=== PATIENT | male | born 1950 | race Caucasian/White ===

== ENCOUNTER 2024-04-26 09:45 | Emergency (ER) | payer OTHER, SELFPAY ==
[2024-04-26] VITALS (8 sets, daily range): BP systolic 103–138; BP diastolic 58–100; BMI 27.8
[2024-04-26 10:26] LABS: % Basophils 0.5 % (0-2); % Eosinophils 0.9 % (0-6); % Immature Granulocytes 0.4 % (0-0.5); % Lymphocytes 20.6 % (20.5-51.1); % Monocytes 8.6 % (1.7-9.3); Absolute Eosinophils 0.1 10^3/uL (0-0.7); Absolute Lymphocytes 1.2 10^3/uL (1.2-3.4); Absolute Monocytes 0.5 10^3/uL (0.1-0.6); Absolute Neutrophils 3.9 10^3/uL (1.4-6.5); Hematocrit 45.9 % (39.0-52.0); Hemoglobin 15.7 g/dL (13.0-18.0); Mean Corp Hgb Conc. 34.2 g/dL (33.0-37.0); Mean Corpuscular Hgb 30.9 pg (27.0-31.0); Mean Corpuscular Volume 90.4 fL (80.0-94.0); Mean Platelet Volume 10.3 fL (7.4-10.4); Nucleated Red Blood Cells % 0 % (-); Platelet Count 180 10^3/uL (130-400); Red Blood Cell Count 5.08 10^6/uL (4.70-6.10); Red Cell Dist. Width 12.6 % (11.5-14.5); White Blood Cell Count 5.6 10^3/uL (4.8-10.8)
[2024-04-26 10:37] LABS: APTT 25.6 Sec (23.4-35.0)
--- NOTE | 2024-04-26 10:37 | ED.GENMED ---
History of Present Illness
General
Chief Complaint: Heart Rate Problem
Source: patient
Exam Limitations: none
Time Seen by Provider: 04/26/24 10:03
Nursing documentation reviewed up to this point in time: agreed with
Travel History
Have you had any contact with someone who has COVID-19?: No
Do you have any symptoms of coronavirus? Fever > 100 degrees, chills, cough, shortness of breath, sore throat, loss of taste or smell, muscle aches, or headache?: No
History of Present Illness
History of Present Illness:
73-year-old male with a past medical history of hyperlipidemia, atrial fibrillation who presents to the emergency room for evaluation of palpitations. Patient reports that he was at the gym this morning as usual and was on the elliptical when he
had sudden onset of palpitations. He says that his heart rate on his monitor shot up quite quickly to about 160-170. He says that he stopped his workout and checked his EKG on his [employer] avinash which told him that he was in A-fib with RVR. He called
his mail distribution scheme examiner who recommended he go to the emergency room to be assessed. He says he has had identical symptoms with A-fib in the past but has not had an issue for about 12 years. He is not on anticoagulation. He says he has not had any
palpitations or any other symptoms preceding this and that the onset was quite abrupt. He denies any chest pain. He says he feels some mild weakness and slightly more short of breath than usual. He denies any lightheadedness. He denies any other
complaints. Sees Dr. Miller for cardiology.
Past History
Past History
ED Past Medical History: None and GERD
ED Past Surgical History: None
Social History
Personal:
Living: with family
Employment: Employed
Review of Systems
Review of Systems
All Other Systems: ROS reviewed and negative except as documented in HPI and ROS
Constitutional: Denies fever or chills
Respiratory: Reports trouble breathing; Denies cough
Cardiac: Reports palpitations; Denies chest pain
ABD/GI: Denies abdominal pain, nausea or vomiting
: Denies flank pain
Musculoskeletal: Denies edema, neck pain or back pain
Neurological: Denies dizzy or headache
Phy Exam
Physical Exam
Physical Exam:
General: Awake, alert, oriented x3; no acute distress
Head: Normocephalic, atraumatic
Eyes: Conjunctiva normal
Throat: Airway intact, handling secretions
Neck: Trachea midline, supple without meningismus
Lungs: Clear to auscultation bilaterally, no wheezing, rales, rhonchi
Heart: Tachycardia with irregularly irregular rhythm, no murmurs, gallops, or rubs
Abd: Soft, non distended, nontender
Neuro: Cranial nerves grossly intact, speech fluid
Skin: no rash
Extremities: No edema in extremities, equal pulses in all extremities
Scores
Heart Failure Risk
Heart Failure Risk Score: Not Applicable
Heart Score for Chest Pain Patients
STEMI patient?: Not applicable
Withdrawal Assessment of Alcohol
Withdrawal Assessment Completed?: Not applicable
Course
Orders/Labs/Results
Orders:
Orders
04/26/24 09:58
Electrocardiogram (*1) Urgent
Reason for Study: Chest Pain
EKG- Treatment ONCE
04/26/24 10:19
Complete Blood Count/With Diff Urgent
Comprehensive Metabolic Panel Urgent
PTT Urgent
Prothrombin Time Urgent
Troponin I Urgent
04/26/24 11:16
Propofol [Diprivan] 20 ml .ROUTE .STK-MED
04/26/24 11:28
EKG [Electrocardiogram (*1)] Urgent
Reason for Study: Palpitations
EKG- Treatment ONCE
Abnormal Lab Results
04/26/24
10:19
Chloride 109 H mmol/L
(98-107)
Glucose 116 H mg/dl
(70-99)
04/26/24 10:19
04/26/24 10:19
Vital Signs
Initial and Last Documented VS:
Initial Vital Signs
Temp Pulse Resp BP Pulse Ox
36.7 C 76 20 138/98 98
04/26/24 09:52 04/26/24 09:52 04/26/24 09:52 04/26/24 09:52 04/26/24 09:52
Last Documented Vital Signs
Temp Pulse Resp BP Pulse Ox
36.6 C 58 16 112/71 97
04/26/24 12:11 04/26/24 12:11 04/26/24 12:11 04/26/24 12:11 04/26/24 12:11
MDM/Problems Addressed
Differential Diagnosis Includes:
A-fib with RVR, SVT atrial flutter, sinus tachycardia
MDM/Problems Addressed:
73-year-old male presents for evaluation of acute onset palpitations this morning similar to prior bout of A-fib about 12 years ago. He is not on anticoagulation. He has some mild shortness of breath and weakness but denies any other complaints.
He sees Dr. Miller for cardiology. Tachycardic as above but normotensive and rest of vitals normal. Physical exam as above. EKG confirms A-fib with RVR. Will place an IV check labs including a CBC and CMP. Case discussed with cardiology and
awaiting their recommendation�suspect patient would be a reasonable candidate for ED cardioversion despite of anticoagulation given that he had quite clear onset documented on his heart monitor.
Labs reviewed: CBC and CMP unremarkable. He had troponin sent in triage despite denying any chest pain and this was undetectable. Discussed case with cardiology who recommended ED cardioversion�patient is agreeable to this plan. Patient was
cardioverted successfully as documented in procedure note. EKG confirms sinus rhythm. Will monitor status post sedation.
Patient completely awake and alert, asymptomatic. At this point he is stable for discharge. Will follow-up with his mail distribution scheme examiner as an outpatient. Will start on Eliquis per cardiology recommendation. We spoke about return precautions and all
questions were answered.
Chronic conditions affecting care:
Atrial fibrillation
*Pulse Oximetry
Patient hypoxic: no
*EKG
Interpreted by ED Provider?: Yes
Heart Rate: 160
Rate: tachycardiac
Rhythm: a-fib
[place]: normal axis
Interval: normal interval
QRS Pattern: normal QRS
Ischemia: non-specific ST changes
*Critical Care Note
Total Time (30-74mins, 75-104mins- exclusive of procedures): Not Applicable
Data Reviewed
Review of Other/Old Records Reveals: Labs and Records
Source: patient and records
Patient Management
Discussion with other providers: Channel Business Manager (Discussed with cardiology)
ED Attending Note
-
Portions of this chart may have been created with voice recognition software.� Occasional wrong word or��sound alike� substitutions may have occurred due to the inherent limitations of voice recognition software.
Discharge Plan
Departure
Patient Disposition: Home (Routine Discharge)
Date of Disposition: 04/26/24
Time of Disposition: 12:18
Patient with high blood pressure during this ER visit?: No
Discharge Problem:
Atrial fibrillation status post cardioversion
Instructions: Atrial Fibrillation (DC), MODERATE SEDATION ADULT
Prescriptions:
New
Eliquis 5 mg tablet
5 mg PO BID 30 Days Qty: 60 0RF
No Action
esomeprazole magnesium [Nexium] 40 MG capsule,delayed release(DR/EC)
40 mg PO DAILY
aspirin 81 MG tablet,chewable
81 mg PO DAILY
omega 2-drq-but-fish oil 1 EACH capsule
1 ea PO DAILY
Referrals:
Wilson Craven MD [Family Provider] -
Arias Miller MD [Active] - Follow up in 5-7 days
Activity Restrictions/Additional Instructions:
Thank you for visiting the Emergency Department at [facility].
1. Please schedule a follow up appointment as directed. Call first thing tomorrow morning to make an appointment.
2. If indicated, please take your medications as instructed and indicated on discharge paperwork.
3. If any of your symptoms do not improve, or persist, or become more severe within 6-12 hours, please return to the emergency department for further care.
4. Please return to the emergency department if you develop a headache, neck pain/stiffness, fever greater than 100.4F, chest pain, shortness of breath, persistent nausea, vomiting, slurred speech, difficulty walking, numbness/tingling, weakness,
signs of infection or any other symptoms that are worrisome to you.
Please call [phone] if you have any questions.
Interventions
Interventions:
*Risk Screen - Suicide Last Done: 04/26/24 09:52
*General Assessment Last Done: 04/26/24 09:52
*Neglect/Abuse Screening Last Done: 04/26/24 09:52
*ED COVID-19 Vaccine History Last Done: 04/26/24 10:17
ED- Cardiac Assessment Last Done: 04/26/24 10:16
ED- Pulmonary Assessment Last Done: 04/26/24 10:16
Discharge Date and Time
Print Language: TAJIK
[2024-04-26 10:39] LABS: ALT (SGPT) 21 U/L (0-50); Albumin 4.4 g/dl (3.5-5.0); Alkaline Phosphatase 55 U/L (38-126); Blood Urea Nitrogen 17 mg/dl (9-20); Calcium 10.1 mg/dl (8.4-10.2); Carbon Dioxide 25 mmol/L (22-30); Chloride 109 mmol/L (98-107); Estimated Creatinine Clearance 73 ml/min; Glucose 116 mg/dl (70-99); Sodium 142 mmol/L (135-145); Total Bilirubin 1.1 mg/dl (0.2-1.3); Total Protein 6.9 g/dl (6.3-8.2); eGFR > 60.00
[2024-04-26 10:49] LABS: Troponin I < 0.012 ng/ml
[2024-04-26 11:34] LABS: AST (SGOT) 24 U/L (17-59)
[2024-04-26] MEDS: ELIQUIS 5 MG PO (12:25)
== END 2024-04-26 12:30 | disposition home or self-care (01) ==
LOC: EMR 09:45
PROVIDERS: EMERGENCY PHYSICIAN Emergency Medicine; FAMILY PHYSICIAN Family Medicine
DX: R06.02 Shortness of breath (principal); R53.1 Weakness; I48.91 Unspecified atrial fibrillation; E78.5 Hyperlipidemia, unspecified; K21.9 Gastro-esophageal reflux disease without esophagitis; Z79.82 Long term (current) use of aspirin
CPT/HCPCS: 92960; 99285; 99152; 80053; 84484; 85025; 85610; 85730; 93005

== ENCOUNTER → 2024-06-01 12:49 | Outpatient (REF) | payer OTHER, SELFPAY | LOC: HWRCS 12:49 | PROVIDERS: ATTENDING PHYSICIAN Nurse Practitioner; FAMILY PHYSICIAN Family Medicine | DX: I48.0 Paroxysmal atrial fibrillation (principal); I34.0 Nonrheumatic mitral (valve) insufficiency; I65.23 Occlusion and stenosis of bilateral carotid arteries | CPT/HCPCS: 93306 ==

== ENCOUNTER → 2024-07-06 10:12 | Outpatient (REF) | payer OTHER, SELFPAY | LOC: RAD 10:12 | PROVIDERS: ATTENDING PHYSICIAN Nurse Practitioner; FAMILY PHYSICIAN Family Medicine | DX: I65.23 Occlusion and stenosis of bilateral carotid arteries (principal) | CPT/HCPCS: 93880 ==

== ENCOUNTER 2024-10-01 21:27 | Emergency (ER) | payer OTHER, SELFPAY ==
[2024-10-01] VITALS (14 sets, daily range): BP systolic 113–158; BP diastolic 64–98; BMI 29.0
--- NOTE | 2024-10-01 21:48 | ED.GENMED ---
History of Present Illness
General
Chief Complaint: Heart Rate Problem
Time Seen by Provider: 10/01/24 21:39
History of Present Illness
History of Present Illness:
TIME OF INITIAL ENCOUNTER: 9:50 PM
HPI: At about 8:50 PM tonight, the patient had abrupt onset sensation of going back into atrial fibrillation. He had A-fib 12 years ago and again 5 months ago. When he was here 5 months ago he had elective cardioversion without being on
anticoagulation as he was certain that his symptoms were acute. He again has sensation that he abruptly started with the symptoms just prior to arrival. He is certain that he was not in A-fib earlier in the week. He was last on Eliquis for about
30 days 5 months ago. He is known to Dr. Miller. He does admit to drinking '2 beers'.
EXAM:
GENERAL: Well appearing in no distress, he does not appear intoxicated and has excellent insight
HEENT: Moist oral mucosa
CARDIOVASCULAR: No murmurs, tachycardic heart rate, irregular rhythm, No chest wall tenderness
PULMONARY: No respiratory distress, breath sounds are clear and equal
ABDOMEN: Soft with no peritoneal signs, no tenderness
NEUROLOGIC: Excellent strength all extremities, no coordination deficits
PSYCHIATRIC: Appropriate mental status, normal insight and judgement
EXTREMITIES: Nontender, no edema, moves all extremities equally
SKIN: No rash, no lesions
NUMBER AND COMPLEXITY OF PROBLEMS ADDRESSED AT THE ENCOUNTER
� Chronic conditions affecting care: Atrial fibrillation, hyperlipidemia, GERD
� Acute Exacerbation and/or Progression of Chronic Illness: This is an acute but recurring problem
� Differential Diagnosis includes: Rapid atrial fibrillation, rapid atrial flutter, other dysrhythmia, electrolyte abnormality
AMOUNT AND/OR COMPLEXITY OF DATA TO BE REVIEWED AND ANALYZED
� I performed an independent evaluation of and my interpretation is:
EKG: A-fib with ventricular rate of 150
CT:
X-rays:
Laboratory Studies: CBC and chemistries unremarkable however the magnesium is slightly low at 1.4
Other:
� Review of other/old records: I reviewed the records when the patient was here in April of this year
� Clinical information was obtained by an independent historian: Briefly spoke to the over the phone
� Prescriptions/Medications Considered but not given:
� Further testing considered but not performed:
RISK OF COMPLICATIONS AND/OR MORBIDITY OR MORTALITY OF PATIENT MANAGEMENT
� Social determinants of health affecting care: Lives at home
� Discussion with other providers: Discussed case with Dr. Saha
� Escalation of care including admission/observation vs risk of discharge considered: I informed patient that it would be ideal to electrically cardiovert on somebody is already anticoagulated. However the patient is adamant
that he is certain that he knows exactly when the symptoms started�approximately 1 hour prior to arrival. I informed him of the slight but real risk of CVA. He verbalized understanding of the risk and still wishes to proceed with electrical
cardioversion.
ANY OTHER UPDATES:
10:40 PM: The patient had been on a Cardizem bolus and then drip. His rate has slowed but he remains in A-fib. He wishes to proceed with electrocardioversion.
10:52 PM to 11:04 PM: Procedural sedation with electrical cardioversion with a total of 60 mg of propofol and 200 J of synchronized cardioversion
Past History
Past History
ED Past Medical History: None and GERD
ED Past Surgical History: None
Social History
Personal:
Living: with family
Employment: Employed
Phy Exam
Physical Exam
Physical Exam:
See HPI
Course
Orders/Labs/Results
Orders:
Orders
10/01/24 21:28
ECG [Electrocardiogram (*1)] Urgent
Reason for Study: Atrial Fibrillation
EKG- Treatment ONCE
10/01/24 21:51
Basic Metabolic Panel Urgent
Complete Blood Count/With Diff Urgent
Magnesium Urgent
TSH Reflex To Free T4 Urgent
10/01/24 21:57
Diltiazem HCl [Cardizem] 10 mg IV NOW STA
10/01/24 22:13
Diltiazem 125 mg/125 ml Nss [Cardizem] 125 mg in 125 ml .ROUTE .STK-MED
10/01/24 22:15
Diltiazem 125 mg/125 ml Nss [Cardizem] 125 mg in 125 ml IV PER PROTOCOL
Initial dose in mg/hr, then titrate:: 5
Titrate to keep:: Heart rate 80-100 bpm
Titrate by mg/hr:: 5 mg/hr
Frequency of titrations (minutes):: 15
Maximum dose in mg/hr:: 15
10/01/24 22:20
Magnesium Oxide 1,000 mg PO NOW STA
10/01/24 22:48
Propofol [Diprivan] 20 ml .ROUTE .STK-MED
10/01/24 22:59
EKG [Electrocardiogram (*1)] Urgent
Reason for Study: Other
Other Reason for Exam: post cardioversion
10/01/24 23:00
EKG- Treatment ONCE
10/01/24 23:36
Apixaban [Eliquis] 5 mg PO NOW STA
Abnormal Lab Results
10/01/24
21:51
MCH 31.2 H pg
(27.0-31.0)
Monocytes % 9.9 H %
(1.7-9.3)
Glucose 126 H mg/dl
(70-99)
Magnesium 1.4 L mg/dl
(1.6-2.3)
10/01/24 21:51
10/01/24 21:51
Vital Signs
Initial and Last Documented VS:
Initial Vital Signs
Temp Pulse Resp BP Pulse Ox
98.2 F 79 16 158/93 98
10/01/24 21:29 10/01/24 21:29 10/01/24 21:29 10/01/24 21:29 10/01/24 21:29
Last Documented Vital Signs
Temp Pulse Resp BP Pulse Ox
98.0 F 78 18 138/72 95
10/01/24 23:35 10/01/24 23:35 10/01/24 23:35 10/01/24 23:35 10/01/24 23:35
Procedures
Cardioversion
Indication:: Afib
Performed by:: Me, Dr. Arambula
Synchronized?: Yes
Energy Used: 200 joules
Number of attempts: 1
Successful?: Yes
ASA Risk Score: Class II
Any reaction or bad outcome to prior sedation/anesthesia?: No history of a reaction
Sedation level to be attained: moderate
Chart and allergies reviewed: Yes
Patient reassessed prior to sedation: Yes
Time out completed at (validating right patient & procedure): 22:52
History of difficult intubation: No
Airway free of obstruction: Yes
Patient has a gag reflex: Yes
Patient is able to open mouth: Yes
Patient has no dentures: Yes
Patient has no loose teeth: Yes
Medication administered by Provider during Moderate Sedation: IV Propofol (mg)
Total dose administered: 60
Time drug administered: 22:52
Start Time: 22:52
Stop Time: 23:04
*Critical Care Note
Total Time (30-74mins, 75-104mins- exclusive of procedures): 45min
comment:
The patient arrives in rapid A-fib with rates in the 150s to 160s. I emergently gave patient rate control with IV Cardizem and then IV Cardizem drip. His vital signs were very closely monitored. I also discussed case with cardiology emergently.
ED Attending Note
-
Portions of this chart may have been created with voice recognition software.� Occasional wrong word or��sound alike� substitutions may have occurred due to the inherent limitations of voice recognition software.
Discharge Plan
Departure
Patient Disposition: Home (Routine Discharge)
Date of Disposition: 10/01/24
Time of Disposition: 23:37
Patient with high blood pressure during this ER visit?: Yes
Discharge Problem:
Atrial fibrillation with RVR
Instructions: Atrial Fibrillation (DC), BLOOD PRESSURE
Prescriptions:
New
Eliquis 5 mg tablet
5 mg PO BID Qty: 60 0RF
No Action
esomeprazole magnesium [Nexium] 40 MG capsule,delayed release(DR/EC)
40 mg PO DAILY
aspirin 81 MG tablet,chewable
81 mg PO DAILY
omega 2-bjp-erz-fish oil 1 EACH capsule
1 ea PO DAILY
Eliquis 5 mg tablet
5 mg PO BID 30 Days Qty: 60 0RF
Referrals:
Wilson Craven MD [Family Provider] -
Arias Miller MD [Active] - Follow up in 2-3 days
Activity Restrictions/Additional Instructions:
Follow-up with Dr. Miller. We did perform procedural sedation with electrical cardioversion successfully. Repeat EKG confirms that you are back in a sinus rhythm. Basic blood work was normal including your thyroid level however your magnesium
level was slightly low at 1.4 which we have replaced. You must resume Eliquis tomorrow morning�I sent a prescription to your pharmacy.
Interventions
Interventions:
*Risk Screen - Suicide Last Done: 10/01/24 21:29
*General Assessment Last Done: 10/01/24 22:00
*Neglect/Abuse Screening Last Done: 10/01/24 21:29
*ED COVID-19 Vaccine History Last Done: 10/01/24 22:00
ED- Cardiac Assessment Last Done: 10/01/24 22:00
ED- Pulmonary Assessment Last Done: 10/01/24 22:00
Discharge Date and Time
Print Language: COLOMBIAN
[2024-10-01 22:01] LABS: % Basophils 0.4 % (0-2); % Eosinophils 2.7 % (0-6); % Immature Granulocytes 0.2 % (0-0.5); % Lymphocytes 32.7 % (20.5-51.1); % Monocytes 9.9 % (1.7-9.3); % Neutrophils 54.1 % (42.2-75.2); Absolute Eosinophils 0.2 10^3/uL (0-0.7); Absolute Lymphocytes 1.8 10^3/uL (1.2-3.4); Absolute Monocytes 0.6 10^3/uL (0.1-0.6); Hematocrit 44.3 % (39.0-52.0); Hemoglobin 15.3 g/dL (13.0-18.0); Mean Corp Hgb Conc. 34.5 g/dL (33.0-37.0); Mean Corpuscular Hgb 31.2 pg (27.0-31.0); Mean Corpuscular Volume 90.4 fL (80.0-94.0); Mean Platelet Volume 10.1 fL (7.4-10.4); Nucleated Red Blood Cells % 0 % (-); Platelet Count 175 10^3/uL (130-400); Red Cell Dist. Width 12.3 % (11.5-14.5); White Blood Cell Count 5.6 10^3/uL (4.8-10.8)
[2024-10-01] MEDS: CARDIZEM 10 MG IV (22:02)
[2024-10-01 22:19] LABS: Blood Urea Nitrogen 17 mg/dl (9-20); Calcium 9.5 mg/dl (8.4-10.2); Carbon Dioxide 22 mmol/L (22-30); Chloride 106 mmol/L (98-107); Glucose 126 mg/dl (70-99); Magnesium 1.4 mg/dl (1.6-2.3); Potassium 3.7 mmol/L (3.5-5.1); Sodium 141 mmol/L (135-145); eGFR > 60.00
[2024-10-01] MEDS: CARDIZEM 125 IV (22:19)
[2024-10-01 22:51] LABS: TSH Reflex To Free T4 2.33 uIU/ml (0.47-4.68)
[2024-10-01] MEDS: MAGNESIUM OXIDE 1000 MG PO (23:21)
[2024-10-01] MEDS: ELIQUIS 5 MG PO (23:48)
== END 2024-10-02 07:59 | disposition home or self-care (01) ==
LOC: EMR 21:27
PROVIDERS: EMERGENCY PHYSICIAN Emergency Medicine; FAMILY PHYSICIAN Family Medicine
DX: I48.91 Unspecified atrial fibrillation (principal); K21.9 Gastro-esophageal reflux disease without esophagitis; Z79.01 Long term (current) use of anticoagulants
CPT/HCPCS: 99284; 92960; 96374; 96375; 96376; 80048; 83735; 84443; 85025; 93005

== ENCOUNTER → 2024-11-24 09:22 | Outpatient (REF) | payer OTHER, SELFPAY | LOC: HWRAD 09:22 | PROVIDERS: ATTENDING PHYSICIAN Family Medicine | DX: Z87.891 Personal history of nicotine dependence (principal) | CPT/HCPCS: 71271 ==

== ENCOUNTER 2025-04-11 05:59 | Day surgery (SDC) | payer OTHER, SELFPAY ==
[2025-03-30 10:05] VITALS: BMI 27.8
[2025-03-30 10:30] LABS: % Basophils 0.5 % (0-2); % Eosinophils 1.4 % (0-6); % Immature Granulocytes 0.2 % (0-0.5); % Lymphocytes 25.3 % (20.5-51.1); % Monocytes 10.1 % (1.7-9.3); % Neutrophils 62.5 % (42.2-75.2); Absolute Eosinophils 0.1 10^3/uL (0-0.7); Absolute Lymphocytes 1.1 10^3/uL (1.2-3.4); Absolute Monocytes 0.4 10^3/uL (0.1-0.6); Absolute Neutrophils 2.7 10^3/uL (1.4-6.5); Hematocrit 43.5 % (39.0-52.0); Hemoglobin 15.2 g/dL (13.0-18.0); Mean Corp Hgb Conc. 34.9 g/dL (33.0-37.0); Mean Corpuscular Hgb 31.5 pg (27.0-31.0); Mean Corpuscular Volume 90.1 fL (80.0-94.0); Mean Platelet Volume 10.2 fL (7.4-10.4); Nucleated Red Blood Cells % 0 % (-); Platelet Count 160 10^3/uL (130-400); Red Blood Cell Count 4.83 10^6/uL (4.70-6.10); Red Cell Dist. Width 12.7 % (11.5-14.5); White Blood Cell Count 4.4 10^3/uL (4.8-10.8)
[2025-03-30 10:56] LABS: ALT (SGPT) 21 U/L (0-50); AST (SGOT) 24 U/L (17-59); Albumin 4.3 g/dl (3.5-5.0); Alkaline Phosphatase 38 U/L (38-126); Blood Urea Nitrogen 19 mg/dl (9-20); Calcium 9.6 mg/dl (8.4-10.2); Carbon Dioxide 25 mmol/L (22-30); Chloride 110 mmol/L (98-107); Estimated Creatinine Clearance 73 ml/min; Glucose 101 mg/dl (70-99); Potassium 4.5 mmol/L (3.5-5.1); Sodium 141 mmol/L (135-145); Total Bilirubin 1.1 mg/dl (0.2-1.3); Total Protein 6.4 g/dl (6.3-8.2); eGFR > 60.00
--- NOTE | 2025-03-30 11:29 | HPS.HSE ---
Family Physician
-
Family Physician: Wilson Craven
Chief Complaint
-
Paroxysmal atrial fibrillation.
History of Present Illness
The patient is a 74 year old male presenting today for paroxysmal atrial fibrillation. The patient reports a history of palpitations and shortness of breath secondary to this diagnosis. He previously underwent 3 cardioversions, with the
last occurring in September 2024, for his arrhythmia. He notes that his symptoms greatly improved after his last cardioversion. Unfortunately though, he experienced 2 episodes of his atrial fibrillation over the last 6 months. He is currently rate
controlled without the use of pharmacological therapy. He has been compliant with Eliquis for oral anticoagulation due to a CHADS-VASc of 1. He is interested in pursuing with an Affera atrial fibrillation ablation for more defintive arrhythmia
management. He denies any current complaints today such as chest pain, shortness of breath, palpitations, nausea, vomiting, diarrhea, lightheadedness, dizziness, cough, sore throat, or fever.
Medical History
Past Medical History
Past Medical History: Reports Other
Additional Past Medical History:
1. Paroxysmal atrial fibrillation, status post cardioversion x3; oral anticoagulation with Eliquis.
2. PVCs.
3. Carotid atherosclerosis without significant stenosis.
4. Mild-moderate valvular disease.
5. Pulmonary nodules, stable on serial imaging.
6. GERD.
7. Schatzki's ring with mild dysphagia.
8. Hiatal hernia.
9. Colon polyps.
10. Diverticulosis.
11. Vertigo.
12. Mild leukopenia.
13. History of tobacco abuse.
Past Surgical History: Reports Other
Additional Past Surgical History:
1. Cardioversion x3.
2. Varicocelectomy.
3. Tonsillectomy.
4. Colonoscopy with polypectomy x3.
5. Endoscopy.
Social History
Tobacco: Former Smoker (He is a former 1 pack per day cigarette smoker who quit tobacco altogether more than 5 years ago. )
Alcohol: Other (He drinks 2-3 beers/glasses of wine approximately 3-4 days a week. )
Personal:
Living: Other (He lives with his in a 3 story home. )
Family History
Family History: Not pertinent
Allergies / Home Medications
Allergy/Medication List:
Home medications:
1. Apixaban 5 mg p.o. twice a day.
2. Refresh eye drops 1 drop ophthalmic twice a day.
3. Nexium 40 mg p.o. daily.
4. Simvastatin 20 mg p.o. at bedtime.
Allergies: No known allergies.
Review of Systems
-
A 12 point ROS was completed and negative except as noted: Yes
Physical Exam
Vital Signs
Blood pressure 148/71. Heart rate 54. Respirations 18. Pulse ox 97% on room air.
Height 5 feet, 8.5 inches. Weight 84.2 kg. BMI 27.8.
Physical Exam
General: Well Developed, Well Nourished and No Apparent Distress
HEENT: NormoCephalic, Moist mucous membranes, Atraumatic and PERRLA
Respiratory: Clear
Cardiac: Bradycardia
GI: Soft, Non Tender and Non Distended
Musculoskeletal: No Edema and Normal Gait & Station
Skin: Warm and Dry
Neuro: AO x 3 and Nonfocal/grossly intact
Laboratory Results
-
03/30/25 10:13
03/30/25 10:13
Laboratory Results
Total Bilirubin 1.1 mg/dl (0.2-1.3) 03/30/25 10:13
AST 24 U/L (17-59) 03/30/25 10:13
ALT 21 U/L (0-50) 03/30/25 10:13
Alkaline Phosphatase 38 U/L (38-126) 03/30/25 10:13
Blood type B positive.
EKG 03/30/2025: Sinus bradycardia.
Echocardiogram 06/01/2024: Left ventricular ejection fraction is 65-70%. No regional wall motion abnormalities are seen. Normal right ventricular size and function. Mild to moderate, eccentric mitral regurgitation. Mild tricuspid regurgitation. Mild
pulmonic regurgitation. Compared to previous echo on 09/02/2022, slightly progressive tricuspid regurgitation is noted.
Impression/Plan
-
IMPRESSION/PLAN:
1. Paroxysmal atrial fibrillation: The patient is in need of an Affera atrial fibrillation ablation with Dr. Elsie Kerns on 04/11/2025. The benefits and risks of the procedure have been explained to the patient. The patient understands these risks
and wishes to proceed. He will not be required to undergo a pre-procedural transesophageal echocardiogram as he has been compliant with his home oral anticoagulation. He is aware to continue his Eliquis up until the night prior to his procedure.
[2025-04-11] VITALS (13 sets, daily range): BP systolic 121–158; BP diastolic 44–83
--- NOTE | 2025-04-11 09:46 | ITS.CL.ABL ---
Software Specialist - Ablation
Ablation
Procedure Report:
AFIB / A flutter ablation:
Mr. Barrera is a very pleasant 74 yr old gentleman with medical history significant for symptomatic paroxysmal atrial fibrillation is here in the EP lab for atrial fibrillation ablation
Date of Procedure:
04/11/2025
Indications:
Symptomatic paroxysmal atrial fibrillation
Pre-Operative Diagnosis:
Paroxysmal atrial fibrillation
Post-Operative Diagnosis:
Paroxysmal atrial fibrillation
Procedure Performed:
Atrial fibrillation ablation with wide area circumferential ablation (WACA) approach for pulmonary vein isolation
Performing Physician:
Elsie Kerns MD
Assistants:
EP staff
Anesthesia:
See anesthesia records
Detailed Description of the Procedure:
Written informed consent was obtained from the patient after a full explanation of the risks and benefits of the procedure including the risks of sedation and anesthesia.
The patient was brought to the electrophysiology laboratory in stable condition in fasting state. Continuous electrocardiographic and hemodynamic monitoring was initiated.
The initial rhythm was sinus rhythm.
The procedure site was meticulously prepared with surgical scrub and allowed to dry with no pooling. Sterile draping was applied to cover the procedure site. The image intensifier was draped with sterile bag and positioned over the patient. After
infusion of local anesthetic, vascular access was obtained under ultrasound guidance and sheaths were placed over guide wire as detailed below.
The images of the ultrasound of the femoral vessels were stored in patient chart.
Sheath and Catheter Placement:
In the right femoral vein, a 10-Tajik sheath was placed under ultrasound guidance for use during the ablation procedure. In the right femoral vein, another 9-Fr sheath was placed for use during intracardiac echo procedure.
The sheaths were upgraded as needed during the case. Intracardiac catheters were positioned using direct fluoroscopic guidance.� ICE catheter was placed in RA. The following catheters / sheaths were placed
Sheaths:
��������� Agilis sheath in right femoral vein upgraded from 10Fr in right femoral vein
��������� 9Fr in right femoral vein
Catheters:
��������� The Affera Sphere 9 catheter -bidirectional D/F� - at locations of HRA, LA and LV.
��������� ICE catheter -AccuNav -� at locations of RA, SVC, and RV.
Heparin was initiated after the access was obtained.
Intracardiac ECHO:
An 8-Tajik AcuNav intracardiac ECHO (ICE) probe was advanced through the 9-Tajik sheath in the left femoral vein into the right atrium under fluoroscopic and ICE ultrasound image guidance and a baseline ECHO study was performed. The left atrial
size was mildly dilated. There was trace tricuspid regurgitation. The aortic valve was grossly normal. There was normal left ventricular size and function. There is a trace pericardial effusion. The CONCHA has baseline normal velocities. The pulmonary
had good flow identified.
During the procedure, ICE was used for monitoring of complications, guidance of trans-septal puncture, monitor the catheter position and tracking ablation lesions. No change in the pericardial space noted throughout the procedure.
Trans-septal Puncture:
Heparin was initiated and infused to maintain appropriate ACT. A J-tipped guidewire was advanced through into the superior vena cava under fluoroscopic and ICE guidance. The Agilis sheath with BRK needle was advanced into the superior vena cava over
the guidewire. The apparatus was withdrawn until it was in contact with the fossa ovalis. The position was adjusted based on fluoroscopy and ultrasound images from ICE. Under fluoroscopic, hemodynamic and ICE ultrasound guidance, left atrium was
cannulated by advancing the needle. Once atrial septum was cannulated, the needle was pulled back and the guide wire was advanced through the needle into the left atrium. The guide wire was advanced into the left superior pulmonary vein. Both the
sheath and the dilator was advanced into the left atrium. The dilator with the needle was withdrawn. Blood was aspirated from the Agilis sheath and arterial blood confirmed. The sheath was flushed. Saline injection noted into the left atrium on ICE.
The waveform of the LA pressure was recorded. The mapping catheter was advanced in the Agilis sheath into the left pulmonary vein.
3D Electroanatomic Mapping:
Using the Sphere 9 Affera catheter advanced through Agilis sheath into the left atrium, an electroanatomic map (EAM) of the left atrium was created using Affera� mapping system with Prism-1 software. The map was used for localization of catheter
position and tacking of ablation lesions. The EAM of the left atrium showed a total of 4 PVs with a two left and two right sided pulmonary veins with all electrically connected to the body the LA. It showed no significant scar on the posterior wall
of the LA. The LA was dilated in size.
Following the EAM, preparation were made for ablation.
Ablation:
Ablation # 2: Pulmonary vein Isolation:
Glycopyrrolate 0.2 mg was given prior to the placement of ablation.
Pulsed field ablation was performed using an open irrigation, bidirectional, contact sensing, dual energy ablation catheter ([employer] sphere -9) by completing the circumferential lesions around the left and right pulmonary veins achieving pulmonary
vein isolation.
Confirmation of the PVI and bidirectional block:
Following achievement of entrance block at the pulmonary veins, pacing from the Sphere 9 affera catheter in each of the four veins at 20 milliamps for 4 milliseconds showed entrance and exit block.
The LA was mapped with The [employer]� mapping system with Prism-1 software in sinus rhythm confirming the line of block at the ablation lesions lines.
�
EP study:
Sinus Node Function: The sinus node functions are within acceptable normal range.
Atrioventricular Malaika Function: �Normal AV conduction noted with normal AV malaika conduction time.
Procedure End
ICE study was done again that showed no epicardial accumulation. No complications noted.
Following the completion of the EP study, catheters were removed. Protamine 40 mg was given at the end of the procedure and ACT was checked repeatedly. The sheaths were removed and hemostasis achieved with VASCADE and manual compression after
acceptable ACT is achieved.
Left atrial Pressure:
Pre-Procedure: Mean LA pressure was 7mmHg
Post-Procedure: Mean LA pressure was 8mmHg
Post-Procedure: Mean RA pressure was 6mmHg
Estimated Blood loss:
<10 cc
Specimens Removed:
None.
Implants / Devices:
None
Urine output:
None
Packs / Drains/ Tubes:
None
Instrument / Sponge Count Correct:
Yes
Complications of the Procedure:
None
Condition of Patient at Time of Transfer:
Hemodynamically stable with no neurological or vascular compromise.
Summary:
��������� Successful atrial fibrillation ablation with circumferential bidirectional line of block at pulmonary vein antra (Pulmonary vein isolation)
Figures from the Procedure:
Figure 1: The electroanatomic mapping (EAM) of the left atrium with bipolar voltage (purple indicates normal electrical activity with red as no myocardial muscle electric activity indicating a line of block or scar.
--- NOTE | 2025-04-11 12:28 | W.PN.UPDATE ---
Update Note
Progress Note Update
74 yo WM s/p PVI (same day). He had some mild chest heaviness with inspiration which has subsided, no sob, pavel diet, EKG SR/SB, R fem site vascade c/d/i soft, no HT. He will resume Eliquis tonight. Activity restrictions reviewed. 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
weeks. He is for d/c home after 1230p if groin stable and voiding.
[2025-04-12 15:16] LABS: ACT-LR - POC > 397 Seconds (116-155)
[2025-04-12 15:16] LABS: ACT-LR - POC > 397 Seconds (116-155)
== END 2025-04-11 12:42 | disposition home or self-care (01) ==
LOC: CATH 05:59
PROVIDERS: ATTENDING PHYSICIAN Internal Medicine Cardiovascular Disease; FAMILY PHYSICIAN Family Medicine; OTHER PHYSICIAN Internal Medicine Cardiovascular Disease
DX: I48.0 Paroxysmal atrial fibrillation (principal); I65.29 Occlusion and stenosis of unspecified carotid artery; I49.3 Ventricular premature depolarization; R91.8 Other nonspecific abnormal finding of lung field; K21.9 Gastro-esophageal reflux disease without esophagitis; K22.2 Esophageal obstruction; R47.02 Dysphasia; K44.9 Diaphragmatic hernia without obstruction or gangrene; Z86.0100 Personal history of colon polyps, unspecified; K57.90 Diverticulosis of intestine, part unspecified, without perforation or abscess without bleeding; R42 Dizziness and giddiness; Z87.891 Personal history of nicotine dependence; D72.819 Decreased white blood cell count, unspecified; Z79.01 Long term (current) use of anticoagulants
CPT/HCPCS: C1769; C1733; C1766; C1892; C1759; 36415; 80053; 85025; 85347; 86850; 86900; 86901; 93005; 93656

== ENCOUNTER 2025-05-11 09:42 | Emergency (ER) | payer OTHER, SELFPAY ==
[2025-05-11 09:43] VITALS: BP 169/103
[2025-05-11 10:20] VITALS: BP 137/73; BMI 28.6
[2025-05-11 10:43] VITALS: BP 137/73
--- NOTE | 2025-05-11 10:45 | ED.GENMED ---
History of Present Illness
General
Chief Complaint: Heart Rate Problem
Time Seen by Provider: 05/11/25 10:06
History of Present Illness
History of Present Illness:
74-year-old male with history of A-fib on Eliquis status post ablation on 04/11 presenting to the emergency department for concern of A-fib. Patient reports that he started to feel symptoms yesterday, and last evening could feel his heart palpating.
Reports that he has been fine status post ablation, has been compliant with his Eliquis. Denies chest pain, notes slight dyspnea. Denies abdominal pain or GI symptoms. Denies any recent fever or illness. Denies additional acute medical
complaints
Past History
Past History
ED Past Medical History: None and GERD
ED Past Surgical History: None
Social History
Personal:
Living: with family
Employment: Employed
Phy Exam
Physical Exam
Physical Exam:
General: Well-appearing, no clinical signs of dehydration, nontoxic and in no acute distress
HEENT: protecting airway
Neck: appears supple
CV: Irregular irregular rhythm, tachycardic, no evidence of cyanosis
Resp: No accessory muscle use, no increased work of breathing, lungs clear to auscultation bilaterally
Abd: No distention, no erythema, pulses and sensation intact
Neuro: alert, no focal neurologic deficit
: deferred
Rectal: deferred
Psych: Normal affect
Skin: Intact
Course
Orders/Labs/Results
Orders:
Orders
05/11/25 09:43
EKG [Electrocardiogram (*1)] Urgent
Reason for Study: Atrial Fibrillation
EKG- Treatment ONCE
05/11/25 10:34
Apixaban [Eliquis] 5 mg PO ONCE ONE
05/11/25 10:44
CMP [Comprehensive Metabolic Panel] Urgent
Complete Blood Count/With Diff Urgent
05/11/25 11:12
Propofol [Diprivan] 20 ml .ROUTE .STK-MED
05/11/25 11:18
Electrocardiogram (*1) Urgent
Reason for Study: Palpitations
EKG- Treatment ONCE
Abnormal Lab Results
05/11/25
10:44
MCH 31.2 H pg
(27.0-31.0)
MPV 10.6 H fL
(7.4-10.4)
Absolute Lymphs (auto) 1.1 L 10^3/uL
(1.2-3.4)
Lymphocytes % 18.4 L %
(20.5-51.1)
Chloride 113 H mmol/L
(98-107)
Glucose 105 H mg/dl
(70-99)
Total Protein 6.2 L g/dl
(6.3-8.2)
05/11/25 10:44
05/11/25 10:44
Vital Signs
Initial and Last Documented VS:
Initial Vital Signs
Temp Pulse Resp BP Pulse Ox
97.7 F 75 20 169/103 99
05/11/25 09:43 05/11/25 09:43 05/11/25 09:43 05/11/25 09:43 05/11/25 09:43
Last Documented Vital Signs
Temp Pulse Resp BP Pulse Ox
98.4 F 58 16 107/78 98
05/11/25 12:25 05/11/25 12:25 05/11/25 12:25 05/11/25 12:25 05/11/25 12:25
MDM/Problems Addressed
MDM/Problems Addressed:
74-year-old male with history of A-fib on Eliquis presenting for atrial fibrillation, status post ablation. Vital signs on arrival significant for tachycardia and hypertension.
On exam patient resting comfortably, no acute distress or discomfort. Patient does appear to be in atrial fibrillation with RVR. Patient is a candidate for cardioversion, otherwise is hemodynamically stable and notes compliance with his Eliquis.
Will discuss with cardiology with likely plan for better sedation and cardioversion
11:20 -discussed with Dr. Cardenas from cardiology, agrees for cardioversion. Went into examination room to consent patient, converted on his own. No present indication for cardioversion, now sinus rhythm. Will plan for repeat EKG and outpatient
cardiology follow-up.
*Pulse Oximetry
SaO2: 98
Oxygen Mode of Delivery: Room air
Patient hypoxic: no
*EKG
Interpreted by ED Provider?: Yes
EKG Intrepretation Date: 05/11/25
EKG Intrepretation Time: 10:47
Interpretation: abnormal
Comparison EKG: changes noted
Heart Rate: 107
Rate: tachycardiac
Rhythm: a-fib
[place]: normal axis
QRS Pattern: normal QRS
Ischemia: no ischemia
*Critical Care Note
Total Time (30-74mins, 75-104mins- exclusive of procedures): Not Applicable
ED Attending Note
-
Portions of this chart may have been created with voice recognition software.� Occasional wrong word or��sound alike� substitutions may have occurred due to the inherent limitations of voice recognition software.
Discharge Plan
Departure
Patient Disposition: Home (Routine Discharge)
Date of Disposition: 05/11/25
Time of Disposition: 12:05
Patient with high blood pressure during this ER visit?: Yes
Condition: Good
Discharge Problem:
Atrial fibrillation
Instructions: Atrial fibrillation - Discharge instructions
Prescriptions:
No Action
esomeprazole magnesium [Nexium] 40 MG capsule,delayed release(DR/EC)
40 mg PO DAILY
Eliquis 5 mg tablet
5 mg PO BID Qty: 60 0RF
simvastatin 20 mg Tablet
20 mg PO HS
carboxymethylcellulose sodium 1 % Drops, Liquid Gel
1 drp OPHTHALMIC (EYE) BID
Referrals:
Wilson Craven MD [Family Provider, Family Practice]
Arias Miller MD [Active, Cardiology]
Activity Restrictions/Additional Instructions:
You were seen in the emergency department for elevated heart rate and atrial fibrillation
You were found to have atrial fibrillation on arrival, however you converted to a normal sinus rhythm without any intervention. Please follow-up with your web applications developer.
Please follow-up closely with your primary care physician.
Return to the emergency department for any worsening of your symptoms, or any development of chest pain, difficulty breathing, abdominal pain with persistent vomiting and inability to tolerate food or liquid by mouth (concern for dehydration),
weakness, headache or confusion, fever greater than 100.4, or any additional symptoms that are concerning to you.
Thank you for choosing [facility].
Interventions
Interventions:
*Risk Screen - Suicide Last Done: 05/11/25 09:43
*General Assessment Last Done: 05/11/25 09:43
*Neglect/Abuse Screening Last Done: 05/11/25 09:43
*ED- Fall Risk Assessment Last Done: 05/11/25 10:20
*ED COVID-19 Vaccine History Last Done: 05/11/25 10:20
*Nursing Disposition Last Done: 05/11/25 12:25
ED- Cardiac Assessment Last Done: 05/11/25 10:20
ED- Pulmonary Assessment Last Done: 05/11/25 10:20
Discharge Date and Time
Discharge Date/Time: 05/11/25 12:20
Print Language: TAMAZIGHT
[2025-05-11 10:50] LABS: % Basophils 0.3 % (0-2); % Eosinophils 0.9 % (0-6); % Immature Granulocytes 0.3 % (0-0.5); % Lymphocytes 18.4 % (20.5-51.1); % Monocytes 7.9 % (1.7-9.3); % Neutrophils 72.2 % (42.2-75.2); Absolute Eosinophils 0.1 10^3/uL (0-0.7); Absolute Lymphocytes 1.1 10^3/uL (1.2-3.4); Absolute Monocytes 0.5 10^3/uL (0.1-0.6); Absolute Neutrophils 4.1 10^3/uL (1.4-6.5); Hematocrit 43.9 % (39.0-52.0); Hemoglobin 15.1 g/dL (13.0-18.0); Mean Corp Hgb Conc. 34.4 g/dL (33.0-37.0); Mean Corpuscular Hgb 31.2 pg (27.0-31.0); Mean Corpuscular Volume 90.7 fL (80.0-94.0); Mean Platelet Volume 10.6 fL (7.4-10.4); Nucleated Red Blood Cells % 0 % (-); Platelet Count 157 10^3/uL (130-400); Red Blood Cell Count 4.84 10^6/uL (4.70-6.10); Red Cell Dist. Width 13.2 % (11.5-14.5); White Blood Cell Count 5.7 10^3/uL (4.8-10.8)
[2025-05-11 11:00] VITALS: BP 118/59
[2025-05-11 11:05] LABS: ALT (SGPT) 17 U/L (0-50); AST (SGOT) 21 U/L (17-59); Albumin 3.9 g/dl (3.5-5.0); Alkaline Phosphatase 41 U/L (38-126); Blood Urea Nitrogen 14 mg/dl (9-20); Calcium 9.6 mg/dl (8.4-10.2); Carbon Dioxide 26 mmol/L (22-30); Chloride 113 mmol/L (98-107); Estimated Creatinine Clearance 92 ml/min; Glucose 105 mg/dl (70-99); Potassium 4.1 mmol/L (3.5-5.1); Sodium 143 mmol/L (135-145); Total Bilirubin 0.9 mg/dl (0.2-1.3); Total Protein 6.2 g/dl (6.3-8.2); eGFR > 60.00
[2025-05-11] MEDS: ELIQUIS 5 MG PO (11:05)
[2025-05-11 12:00] VITALS: BP 107/78
--- NOTE | 2025-05-11 12:24 | EDRN ---
Reviewed discharge instructions with patient. Verbalized understanding. Ambulated with steady gait to the lobby.
[2025-05-11 12:25] VITALS: BP 107/78
== END 2025-05-11 12:20 | disposition home or self-care (01) ==
LOC: EMR 09:42
PROVIDERS: EMERGENCY PHYSICIAN Student in an Organized Health Care Education/Training Program; FAMILY PHYSICIAN Family Medicine
DX: I48.91 Unspecified atrial fibrillation (principal); Z79.01 Long term (current) use of anticoagulants; I10 Essential (primary) hypertension
CPT/HCPCS: 99284; 80053; 85025; 93005

== ENCOUNTER 2025-07-22 11:24 | Emergency (ER) | payer OTHER, SELFPAY ==
[2025-07-22 11:31] VITALS: BP 163/74
[2025-07-22 12:11] LABS: Hematocrit 42.7 % (39.0-52.0); Hemoglobin 14.7 g/dL (13.0-18.0); Mean Corp Hgb Conc. 34.4 g/dL (33.0-37.0); Mean Corpuscular Volume 90.3 fL (80.0-94.0); Nucleated Red Blood Cells % 0 % (-); Platelet Count 181 10^3/uL (130-400); Red Cell Dist. Width 12.5 % (11.5-14.5)
--- NOTE | 2025-07-22 12:25 | ED.GENMED ---
History of Present Illness
General
Chief Complaint: Rectal Bleeding
Source: patient and spouse
Exam Limitations: none
Time Seen by Provider: 07/22/25 12:06
Nursing documentation reviewed up to this point in time: agreed with
History of Present Illness
History of Present Illness:
75-year-old male with a past medical history of hyperlipidemia, GERD, atrial fibrillation on Eliquis presents to the emergency department with his for evaluation of abdominal discomfort, also noted some rectal bleeding today. Patient reports
vague upper abdominal discomfort that he says was consistent this morning for a few hours and since has resolved. He says that he had some more mild symptoms yesterday as well. He did not have any associated nausea or vomiting but notes that he
had a bowel movement today and that when he wiped after the bowel movement there was significant amount of bright red blood on the toilet paper. He says he did not notice significant blood mixed in with the stool. He says he had a subsequent bowel
movement and there was minimal blood and then a third small bowel movement later that had no blood whatsoever. With this constellation of symptoms came to the ER for assessment. He denies any chest pain or shortness of breath. He has not had
fever or chills. He denies any other acute complaints. He says his symptoms this morning started shortly after eating 2 small sausage sandwiches.
Past History
Past History
ED Past Medical History: None and GERD
ED Past Surgical History: None
Social History
Personal:
Living: with family
Employment: Employed
Review of Systems
Review of Systems
All Other Systems: ROS reviewed and negative except as documented in HPI and ROS
Constitutional: Denies fever
Respiratory: Denies trouble breathing
Cardiac: Denies chest pain
ABD/GI: Reports abdominal pain and bloody stools; Denies nausea, vomiting or diarrhea
: Denies flank pain
Musculoskeletal: Denies neck pain or back pain
Neurological: Denies dizzy or headache
Phy Exam
Physical Exam
Physical Exam:
General: Awake, alert, oriented x3; no acute distress
Head: Normocephalic, atraumatic
Eyes: Conjunctiva normal, sclera anicteric
Throat: Airway intact, handling secretions
Neck: Trachea midline
Lungs: Clear to auscultation bilaterally, no wheezing, rales, rhonchi
Heart: Regular rate and rhythm, no murmurs, gallops, or rubs
Abd: Soft, non distended, minimally tender in the epigastrium
Rectal: Small external hemorrhoids noted, no active bleeding, brown stool in the rectal vault Hemoccult negative, no rectal masses appreciated
Neuro: Grossly intact
Extremities: No edema in extremities, equal pulses in all extremities
Scores
Heart Failure Risk
Heart Failure Risk Score: Not Applicable
Heart Score for Chest Pain Patients
STEMI patient?: Not applicable
Withdrawal Assessment of Alcohol
Withdrawal Assessment Completed?: Not applicable
Course
Orders/Labs/Results
Orders:
Orders
07/22/25 12:03
CMP [Comprehensive Metabolic Panel] Urgent
Complete Blood Count/With Diff Urgent
Lipase Urgent
Comment: ADD ON
07/22/25 12:25
Electrocardiogram (*1) Urgent
Reason for Study: Abdominal Pain
EKG- Treatment ONCE
US Abdomen Complete/Upper Urgent
Comment:
Reason For Exam: upper abd pain
07/22/25 13:13
Type+Screen Urgent
Troponin I Urgent
07/22/25 13:32
Add On- LAB Urgent
Tests Added?: lipase
Abnormal Lab Results
07/22/25
12:03
MCH 31.1 H pg
(27.0-31.0)
Absolute Lymphs (auto) 1.0 L 10^3/uL
(1.2-3.4)
Lymphocytes % 18.7 L %
(20.5-51.1)
Chloride 110 H mmol/L
(98-107)
Glucose 104 H mg/dl
(70-99)
Lipase 17 L U/L
(23-300)
07/22/25 12:03
07/22/25 12:03
Vital Signs
Initial and Last Documented VS:
Initial Vital Signs
Temp Pulse Resp BP Pulse Ox
36.8 C 66 16 163/74 97
07/22/25 11:31 07/22/25 11:31 07/22/25 11:31 07/22/25 11:31 07/22/25 11:31
Last Documented Vital Signs
Temp Pulse Resp BP Pulse Ox
36.8 C 61 15 153/72 95
07/22/25 11:31 07/22/25 15:00 07/22/25 15:00 07/22/25 15:00 07/22/25 15:00
MDM/Problems Addressed
Differential Diagnosis Includes:
Abdominal pain: PUD, gastritis/GERD, pancreatitis, cholelithiasis, cholecystitis; less likely anginal equivalent
Rectal bleeding: Hemorrhoids, diverticular bleed, AVM, polyp, etc
MDM/Problems Addressed:
75-year-old male presents for evaluation of abdominal discomfort as described above, also noted some blood on toilet tissue today after bowel movements. Vital signs significant for mild hypertension but otherwise within acceptable range. Physical
exam as above�he did have some hemorrhoids on rectal examination with brown stool noted in the rectal vault Hemoccult negative; certainly by history and exam presentation is consistent with hemorrhoidal bleeding and suspect that this is unrelated to
his abdominal discomfort. He had some labs in the triage including CBC which showed normal hemoglobin 14.7, no leukocytosis. Chemistry is pending. Will add lipase. Will add troponin and check an EKG. Will check upper abdominal ultrasound. Will
monitor on telemetry and reassess after the above.
Follow-up labs reviewed: Chemistry no clinically significant abnormalities�notably normal LFTs. Lipase normal. Troponin undetectable and with symptoms for the past few days this is sufficient to rule out acute VT, low suspicion that the symptoms
are anginal. Abdominal ultrasound showed fatty liver disease but no signs of cholelithiasis or cholecystitis. Suspect likely gastritis or GERD as cause for symptoms. He is currently asymptomatic and has been since my initial assessment. I think
he is stable for discharge at this point in time although I did advise him that he should see a GI for close outpatient follow-up. Spoke with him in detail about return precautions including any recurrence of significant GI bleeding. All questions
answered.
Chronic conditions affecting care:
A-fib on Eliquis
Acute Exacerbation and/or Progression of Chronic Illness:
Acute hypertensive
Acute Exacerbation and/or Progression of Chronic Illness: HTN
*Radiology
Radiology exam reviewed: radiology read reviewed
*Pulse Oximetry
SaO2: 97
Oxygen Mode of Delivery: Room air
Patient hypoxic: no (97%)
*Critical Care Note
Total Time (30-74mins, 75-104mins- exclusive of procedures): Not Applicable
Data Reviewed
Review of Other/Old Records Reveals: Labs and Records
Source: patient and spouse
ED Attending Note
-
Portions of this chart may have been created with voice recognition software.� Occasional wrong word or��sound alike� substitutions may have occurred due to the inherent limitations of voice recognition software.
Discharge Plan
Departure
Patient Disposition: Home (Routine Discharge)
Date of Disposition: 07/22/25
Time of Disposition: 15:29
Patient with high blood pressure during this ER visit?: Yes
Discharge Problem:
Abdominal pain, Hemorrhoid
Instructions: Hemorrhoids (DC), Abdominal Pain
Prescriptions:
No Action
esomeprazole magnesium [Nexium] 40 MG capsule,delayed release(DR/EC)
40 mg PO DAILY
Eliquis 5 mg tablet
5 mg PO BID Qty: 60 0RF
simvastatin 20 mg Tablet
20 mg PO HS
calcium carbonate [Tums] 200 mg calcium (500 mg) Tablet,Chewable
400 mg PO HS
Refresh Relieva 0.5-0.9 % Drops
1 drp BOTH EYES BID
Referrals:
Wilson Craven MD [Family Provider, Family Practice] - Follow up in 1 week
Nanci Tristan DO [Active, Gastroenterology] - Call in 1-3 days for appt
Activity Restrictions/Additional Instructions:
Thank you for visiting the Emergency Department at [facility].
1. Please schedule a follow up appointment as directed. Call first thing tomorrow morning to make an appointment.
2. If indicated, please take your medications as instructed and indicated on discharge paperwork.
3. If any of your symptoms do not improve, or persist, or become more severe within 6-12 hours, please return to the emergency department for further care.
4. Please return to the emergency department if you develop a headache, neck pain/stiffness, fever greater than 100.4F, chest pain, shortness of breath, persistent nausea, vomiting, slurred speech, difficulty walking, numbness/tingling, weakness,
signs of infection or any other symptoms that are worrisome to you.
Please call [phone] if you have any questions.
Interventions
Interventions:
*Risk Screen - Suicide Last Done: 07/22/25 11:31
*General Assessment Last Done: 07/22/25 11:53
*Neglect/Abuse Screening Last Done: 07/22/25 11:31
*ED- Fall Risk Assessment Last Done: 07/22/25 11:53
*ED COVID-19 Vaccine History Last Done: 07/22/25 11:53
FC-Ovybhc-Dkyatjvefu Assessment Last Done: 07/22/25 11:53
ED- Cardiac Assessment Last Done: 07/22/25 11:53
ED- Pulmonary Assessment Last Done: 07/22/25 11:53
Discharge Date and Time
Print Language: LEBANESE
[2025-07-22 12:26] LABS: ALT (SGPT) 21 U/L (0-50); AST (SGOT) 25 U/L (17-59); Albumin 4.3 g/dl (3.5-5.0); Alkaline Phosphatase 39 U/L (38-126); Blood Urea Nitrogen 17 mg/dl (9-20); Calcium 9.8 mg/dl (8.4-10.2); Carbon Dioxide 25 mmol/L (22-30); Chloride 110 mmol/L (98-107); Glucose 104 mg/dl (70-99); Potassium 4.2 mmol/L (3.5-5.1); Sodium 140 mmol/L (135-145); Total Protein 6.6 g/dl (6.3-8.2); eGFR > 60.00
[2025-07-22 13:11] VITALS: BP 150/74
[2025-07-22 14:00] VITALS: BP 148/70
[2025-07-22 14:04] LABS: Lipase 17 U/L (23-300)
[2025-07-22 14:26] LABS: Troponin I < 0.012 ng/ml
[2025-07-22 15:00] VITALS: BP 153/72
== END 2025-07-22 15:48 | disposition home or self-care (01) ==
LOC: EMR 11:24
PROVIDERS: EMERGENCY PHYSICIAN Emergency Medicine; FAMILY PHYSICIAN Family Medicine
DX: R10.9 Unspecified abdominal pain (principal); K64.9 Unspecified hemorrhoids; I48.91 Unspecified atrial fibrillation; I10 Essential (primary) hypertension; E78.5 Hyperlipidemia, unspecified; K21.9 Gastro-esophageal reflux disease without esophagitis; K76.0 Fatty (change of) liver, not elsewhere classified; Z79.01 Long term (current) use of anticoagulants
CPT/HCPCS: 99284; 76700; 80053; 83690; 84484; 85025; 86850; 86900; 86901; 93005